=== PATIENT | male | born 2000 | race Caucasian/White ===

== ENCOUNTER 2018-09-11 23:03 | Emergency (ER) | payer OTHER ==
[~2018-09-11] VITALS: Ht 180.3 cm; Wt 88.6 kg
[2018-09-12] MEDS ORDERED: AMOX500C PO (02:01)
[2018-09-12] MEDS ORDERED: PSEU30TA85 PO (02:03)
[2018-09-12 02:11] VITALS: BP 130/80
[2018-09-12] MEDS ORDERED: AMOXICILLIN 500 MG CAP PO ONE (02:15)
== END 2018-09-12 02:12 | disposition home or self-care (01) ==
LOC: M ED 23:03
DX: H66.93 Otitis media, unspecified, bilateral (principal); Z77.098 Contact with and (suspected) exposure to other hazardous, chiefly nonmedicinal, chemicals

== ENCOUNTER 2018-09-30 21:05 | Day surgery (SDC) | payer OTHER ==
[~2018-09-30] VITALS: Ht 182.9 cm; Wt 90.9 kg
[~2018-09-30 21:05] MED LIST: AMOX500C PO; PSEU30TA85 PO
[2018-09-30] MEDS ORDERED: ONDANSETRON 4MG/2ML VIAL (J2405) IV ONE (21:45)
[2018-09-30] MEDS ORDERED: PANTOPRAZOLE 40MG INJ (PROTONIX) (C9113) IV ONE (21:45)
[2018-09-30] MEDS ORDERED: NS 1,000 ML IV ONE (21:45)
[2018-09-30 21:48] LABS: HEMATOCRIT 39.7 % (42.0-52.0); HEMOGLOBIN 13.4 g/dl (13.5-17.5); MEAN CORPUSCULAR HEMOGLOBIN 29.8 pg (27.0-33.0); MEAN CORPUSCULAR HGB CONC 33.8 g/dl (32.0-36.5); MEAN CORPUSCULAR VOLUME 88.2 fl (80.0-96.0); PLATELET COUNT, AUTOMATED 265 10^3/uL (150-450)
[2018-09-30 22:15] LABS: INR 1.06; PROTHROMBIN TIME 13.5 SECONDS (11.8-14.0)
[2018-09-30 22:25] LABS: ALBUMIN 3.8 GM/DL (3.2-5.2); ALT/SGPT 58 U/L (12-78); AMYLASE 82 U/L (25-115); BILIRUBIN,DIRECT 0.2 MG/DL (0.0-0.2); BILIRUBIN,TOTAL 0.5 MG/DL (0.2-1.0); BLOOD UREA NITROGEN 13 MG/DL (7-18); CALCIUM LEVEL 9.3 MG/DL (8.5-10.1); CARBON DIOXIDE LEVEL 27 MEQ/L (21-32); CHLORIDE LEVEL 106 MEQ/L (98-107); CREATININE FOR GFR 0.99 MG/DL (0.70-1.30); GLUCOSE, FASTING 95 MG/DL (70-100); LIPASE 665 U/L (73-393); POTASSIUM SERUM 3.9 MEQ/L (3.5-5.1); SODIUM LEVEL 140 MEQ/L (136-145); TOTAL PROTEIN 6.8 GM/DL (6.4-8.2)
[2018-09-30] MEDS ORDERED: NS 1,000 ML IV SCH (23:15)
[2018-09-30] MEDS ORDERED: MORPHINE 4 MG/ML 1ML VIAL/SYRINGE (J2270) IV ONE (23:15)
[2018-09-30 23:37] LABS: ETHYL ALCOHOL (ETHANOL) 0.003 % (0.000-0.010)
--- NOTE | 2018-10-01 00:07 | REPVR ---
EXAM: CT Abdomen and Pelvis Without Contrast EXAM DATE/TIME: 09/30/2018 10:50 PM CLINICAL HISTORY: 18 years old, male; Abdominal pain; Localized; Right lower quadrant (rlq); Additional info: Rlq pain TECHNIQUE: Imaging protocol: Axial computed tomography images of the abdomen and pelvis without contrast. Coronal and sagittal reformatted images were created and reviewed. Radiation optimization: All CT scans at this facility use at least one of these dose optimization techniques: automated exposure control; mA and/or kV adjustment per patient size (includes targeted exams where dose is matched to clinical indication); or iterative reconstruction. COMPARISON: No relevant prior studies available. Study limitations: Evaluation for mass, inflammatory change, including bowel wall/fold thickening, viscera, and vasculature, is suboptimal without contrast. There is some extraneous artifact across the upper abdomen. FINDINGS: LUNG BASES: No infiltrate or effusion. VASCULAR: Major vasculature is within normal limits for noncontrast evaluation PERITONEAL : No free air. Trace amount of free fluid seen within the pelvis. GI: No hiatal hernia. The stomach contains ingested material, fluid and gas. The stomach is not sufficiently distended for complete diagnostic evaluation by this exam. No perigastric or periduodenal inflammatory stranding seen. No asymmetric small bowel dilation to suggest obstruction. Small nonspecific mesenteric lymph nodes are seen. Scattered fecal material and gas within portions of the colon. There is appearance of rectal wall thickening and there is slight perirectal stranding and elevated vascularity. Clinical correlation for proctitis although findings could be secondary to a lack of sufficient distention and/or hemorrhoids as well. No evidence of acute diverticulitis. The appendix is dilated slightly above normal limits at 10.9 mm. There is minimal periappendiceal stranding. There is likely some appendiceal wall thickening although this would be better assessed with contrast. Findings are consistent with mild acute appendicitis. No evidence of perforation/free air or drainable abscess. HEPATOBILIARY, PANCREAS, SPLEEN: Sagittal hepatic length is 19.7 cm. No calcified gallstones. No pancreatic inflammation. Spleen not enlarged. ADRENALS, KIDNEYS, BLADDER, RETROPERITONEAL: Adrenals within normal limits. No hydronephrosis. No renal calculi. No perinephric stranding or fluid. Extrarenal pelvis noted on the left. No perivesical stranding. There is some prostate calcifications centrally. No bladder wall thickening. MUSCULOSKELETAL: No acute findings. IMPRESSION: Findings are consistent with mild uncomplicated acute appendicitis. Other gastrointestinal findings discussed above. Other incidental findings discussed above. THIS REPORT CONTAINS FINDINGS THAT MAY BE CRITICAL TO PATIENT CARE. The findings were verbally communicated via telephone conference with KENNY ROTHMAN at 12:06 AM EDT on 10/01/2018. The findings were acknowledged and understood. Electronically signed by: Derrick Joyner On 10/01/2018 00:07:10 AM
[2018-10-01] MEDS ORDERED: PIPERACILLIN/TAZOBACTAM SOD 3.375 GM in D5W MINI-BAG PLUS 50 ML IV ONE (00:15)
[2018-10-01] MEDS ORDERED: IBUP-1091 PO (00:42)
[2018-10-01] MEDS ORDERED: BUPIVACAINE/EPIN 0.25% 30 ML VIAL As Ordered ONE (01:09)
[2018-10-01] MEDS ORDERED: fentaNYL 250 MCG/5 ML INJECTION (J3010) As Ordered ONE (01:13)
[2018-10-01] MEDS ORDERED: PROPOFOL 200 MG/20 ML VIAL As Ordered ONE (01:13)
[2018-10-01] MEDS ORDERED: MIDAZOLAM INJ 2 MG/2 ML VIAL (J2250) As Ordered ONE (01:13)
[2018-10-01] MEDS ORDERED: ROCURONIUM BROMIDE 50 MG/5 ML VIAL As Ordered ONE (01:13)
[2018-10-01] MEDS ORDERED: ONDANSETRON 4MG/2ML VIAL (J2405) As Ordered ONE (01:13)
[2018-10-01] MEDS ORDERED: dexameTHASONE 4 MG/ML 1ML VIAL (J1100) As Ordered ONE (01:13)
[2018-10-01] MEDS ORDERED: LIDOCAINE 2% INJ 100 MG/5 ML SDV (FOR ANES.) As Ordered ONE (01:13)
[2018-10-01] MEDS ORDERED: ACETAMINOPHEN 1000MG 100ML IV BTL (OFIRMEV) (J0131 PER 10MG) As Ordered ONE (02:04)
[2018-10-01] MEDS ORDERED: KETOROLAC 60 MG/2 ML VIAL (J1885) As Ordered ONE (02:04)
[2018-10-01] MEDS ORDERED: METOCLOPRAMIDE INJ 10MG/2ML VIAL (J2765) As Ordered ONE (02:07)
[2018-10-01] MEDS ORDERED: SUGAMMADEX SODIUM 500 MG/5 ML VIAL (BRIDION) As Ordered ONE (02:21)
[2018-10-01] MEDS ORDERED: METOCLOPRAMIDE INJ 10MG/2ML VIAL (J2765) IV PRN (02:45)
[2018-10-01] MEDS ORDERED: LR 1,000 ML IV SCH (02:45)
[2018-10-01] MEDS ORDERED: ONDANSETRON 4MG/2ML VIAL (J2405) IV PRN ×2 (02:45→03:00)
[2018-10-01] MEDS ORDERED: PERCOCET 5MG/325MG TAB PO PRN (02:45)
[2018-10-01] MEDS ORDERED: KETOROLAC 30 MG/ML VIAL (J1885) IV PRN (02:45)
[2018-10-01] MEDS ORDERED: fentaNYL 100 MCG/2 ML INJECTION (J3010) IV PRN (02:45)
[2018-10-01] MEDS ORDERED: D5W/LR 1,000 ML IV SCH (02:46)
[2018-10-01] MEDS ORDERED: MORPHINE 4 MG/ML 1ML VIAL/SYRINGE (J2270) IV PRN (03:00)
[2018-10-01] MEDS ORDERED: NORCO, ANEXSIA 5/325MG TABLET (HYDROcodone/ACETAMINOPHEN) PO PRN ×2 (03:00)
[2018-10-01 03:45] VITALS: BP 174/77
[2018-10-01 04:15] VITALS: BP 169/74
[2018-10-01 05:15] VITALS: BP 169/74
[2018-10-01 06:00] VITALS: BP 169/77
[2018-10-01] MEDS: PIPERACILLIN/TAZOBACTAM SOD 3.375 GM in D5W MINI-BAG PLUS 50 ML IV SCH ×2 (06:14→11:27)
[2018-10-01] MEDS ORDERED: KETOROLAC 30 MG/ML VIAL (J1885) IV SCH (08:00)
== END 2018-10-01 13:10 | disposition home or self-care (01) ==
LOC: M ED 21:05 → M SDC 21:06 → M MS5PR 10-01 03:30 → M SDC 10-01 03:30 → EDBEDREQTM 10-01 03:45 → M MS5PR 10-01 13:10 → M SDC 10-01 13:10
PROVIDERS: ATTEND Surgery
DX: K35.890 Other acute appendicitis without perforation or gangrene (principal); F17.290 Nicotine dependence, other tobacco product, uncomplicated
CPT/HCPCS: 36415; 44970; 74176; 80053; 81001; 82150; 82248; 83690; 85027; 85610; 86850; 86900; 86901; 88302; 96361; 96374; 96375; 96376; 99284; C9113; G0480; J0131; J1100; J1885; J2250; J2270; J2405; J2543; J2765; J3010

== ENCOUNTER 2019-11-15 12:27 | Inpatient (IN) | payer OTHER ==
[~2019-11-15] VITALS: Ht 182.9 cm; Wt 90.9 kg
[~2019-11-15 12:27] MED LIST changes: +IBUP-1720 PO
[2019-11-15] MEDS ORDERED: ESTR1TAB PO ×2 (12:44)
[2019-11-15] MEDS ORDERED: SPIR-10 PO (12:44)
[2019-11-15 13:10] LABS: HEMATOCRIT 43.6 % (42.0-52.0); HEMOGLOBIN 14.2 g/dl (13.5-17.5); MEAN CORPUSCULAR HEMOGLOBIN 29.8 pg (27.0-33.0); MEAN CORPUSCULAR HGB CONC 32.6 g/dl (32.0-36.5); MEAN CORPUSCULAR VOLUME 91.4 fl (80.0-96.0); PLATELET COUNT, AUTOMATED 352 10^3/uL (150-450); RED BLOOD COUNT 4.77 10^6/uL (4.30-6.10); WHITE BLOOD COUNT 13.3 10^3/uL (4.0-10.0)
[2019-11-15 13:38] LABS: AMPHETAMINES LEVEL URINE NEGATIVE (NEGATIVE); BARBITURATES URINE NEGATIVE (NEGATIVE); BENZODIAZEPINES URINE NEGATIVE (NEGATIVE); CANNABINOIDS URINE NEGATIVE (NEGATIVE); COCAINE METABOLITE URINE NEGATIVE (NEGATIVE); METHADONE URINE NEGATIVE (NEGATIVE); OPIATES URINE NEGATIVE (NEGATIVE); PHENCYCLIDINE URINE NEGATIVE (NEGATIVE)
[2019-11-15 13:53] LABS: ACETAMINOPHEN LEVEL < 2.0 UG/ML (10.0-30.0); ALBUMIN 4.2 GM/DL (3.2-5.2); ALT/SGPT 19 U/L (12-78); BILIRUBIN,DIRECT < 0.1 MG/DL (0.0-0.2); BILIRUBIN,TOTAL 0.2 MG/DL (0.2-1.0); BLOOD UREA NITROGEN 15 MG/DL (7-18); CARBON DIOXIDE LEVEL 26 MEQ/L (21-32); CHLORIDE LEVEL 106 MEQ/L (98-107); CREATININE FOR GFR 0.99 MG/DL (0.70-1.30); ETHYL ALCOHOL (ETHANOL) < 0.003 % (0.000-0.010); GLOMERULAR FILTRATION RATE > 60.0 (>60); GLUCOSE, FASTING 96 MG/DL (70-100); POTASSIUM SERUM 4.3 MEQ/L (3.5-5.1); SALICYLATE LEVEL < 1.7 MG/DL (5.0-30.0); SODIUM LEVEL 135 MEQ/L (136-145)
--- NOTE | 2019-11-15 20:37 | ECGEPIP ---
[facility] - ED Test Date: 2019-11-15 Pat Name: ENMA PARKER Department: Room: - Gender: Male Resident In Diagnostic Radiology: : 2000 Requested By: PIETRO Wheatley Order Number: [id number] Reading MD: Angella Silveira Measurements Intervals [place] Rate: 54 P: 20 WA: 160 QRS: 66 QRSD: 109 T: 48 QT: 448 QTc: 428 Interpretive Statements SINUS BRADYCARDIA NO PRIOR Electronically Signed on 11-15-2019 20:36:33 EDT by Angella Silveira
[2019-11-15] MEDS ORDERED: estradioL 1 MG TAB PO ONE (21:00)
[2019-11-16] MEDS: NICOTINE 21MG/24HR 1 EA TRANSDERMAL TD SCH (09:00)
[2019-11-16] MEDS: SPIRONOLACTONE 25 MG TAB PO SCH (09:25)
[2019-11-16] MEDS: estradioL 1 MG TAB PO SCH (10:04)
[2019-11-16] MEDS ORDERED: MAALOX 30 ML SUSP *UDC PO PRN (17:15)
[2019-11-16] MEDS ORDERED: MOM 30ML SUSPENSION UDC PO PRN (17:15)
[2019-11-16] MEDS ORDERED: ACETAMINOPHEN TAB 650MG DOSE (2X325MG) PO PRN (17:15)
[2019-11-16] MEDS ORDERED: OLANZapine ORAL DISINTEGRATING TAB 5MG PO PRN (17:15)
[2019-11-16] MEDS ORDERED: traZODone 50 MG TAB PO PRN (17:15)
[2019-11-16 18:50] VITALS: BP 143/72
[2019-11-17 07:04] VITALS: BP 129/57
[2019-11-17] MEDS: estradioL 1 MG TAB PO SCH ×2 (08:30→20:04)
[2019-11-17] MEDS: SPIRONOLACTONE 25 MG TAB PO SCH (08:31)
[2019-11-17] MEDS: NICOTINE 21MG/24HR 1 EA TRANSDERMAL TD SCH (08:31)
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
[2019-11-17] MEDS ORDERED: SERTRALINE HCL 25 MG TABLET PO ONE (12:15)
[2019-11-17] MEDS ORDERED: OXAZEPAM 10 MG CAP PO ONE (12:15)
[2019-11-17 15:39] VITALS: BP 127/72
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
[2019-11-18 06:36] VITALS: BP 121/67
[2019-11-18] MEDS: SPIRONOLACTONE 25 MG TAB PO SCH (08:09)
[2019-11-18] MEDS: SERTRALINE HCL 25 MG TABLET PO SCH (08:09)
[2019-11-18] MEDS: estradioL 1 MG TAB PO SCH ×2 (08:10→20:00)
[2019-11-18] MEDS: NICOTINE 21MG/24HR 1 EA TRANSDERMAL TD SCH (08:10)
[2019-11-18] MEDS ORDERED: INFLUENZA QUADRIVALENT PF VACCINE 0.5ML SYRINGE IM ONE (09:00)
--- NOTE | 2019-11-18 10:31 | MHIPNPDOC ---
[facility] Progress Note Progress Note DATE OF SERVICE: 11/18/19 Subjective HPI: The patient is met with, she reports that she is doing much better and feeling improved, she reports that she will feel better about leaving tomorrow reports that intermittent ideation of hopelessness is present but no overt suicidal thoughts. She's been engaged and has been socializing well on the unit, without any major problems. Objective General: Well dressed with good hygiene Speech: Spontaneous and fluid Thought processes: Linear and logical Thought content: Future orientated Abstract reasoning, and computation: Intact Description of associations: Intact Description of abnormal or psychotic thoughts:Denies any suicidal or homicidal ideation. Denies any auditory or visual hallucinations. Does not appear to be responding to internal stimuli. Does not appear to be endorsing any bizarre or paranoid ideation. Judgment: fair Insight: fair Orientation: Alert and orientated 3 Recent and remote memory: Intact Attention span and concentration: Intact Fund of knowledge: Adequate Mood: "okay" Affect: Euthymic with a full range Assessment major depressive disorder, recurrent, unspecified Plan Plan is to continue Zoloft as current, discharge tomorrow is patient on voluntary and will not likely meet involuntary criteria on discharge Vital Signs Vital Signs Date Time Temp Pulse Resp B/P (MAP) Pulse Ox O2 Delivery O2 Flow Rate FiO2 11/18/19 06:36 96.4 66 12 121/67 (85) Room Air 11/17/19 07:04 98 Current Medications Current Medications Medications (Trade) Dose Ordered Sig/Ervin Route PRN Reason Start Time Stop Time Status Last Admin Dose Admin Acetaminophen (Tylenol Tab) 650 mg Q6HP PRN PO HEADACHE or DISCOMFORT 11/16/19 17:15 Al Hydrox/Mg Hydrox/Simethicone (Mylanta) 30 ml Q4HP PRN PO HEARTBURN/INDIGESTION 11/16/19 17:15 Estradiol (Estrace) 1 mg QHS PO 11/17/19 21:00 11/17/19 20:04 Estradiol (Estrace) 2 mg DAILY PO 11/16/19 09:00 11/18/19 08:10 Home Med (Med Rec Complete!) ASDIRECTED XX 11/15/19 20:30 11/15/19 20:31 DC Magnesium Hydroxide (Milk Of Magnesia) 30 ml DAILYPRN PRN PO CONSTIPATION 11/16/19 17:15 Nicotine (Nicoderm Cq 21mg) 1 patch DAILY TD 11/16/19 09:00 11/18/19 08:10 Olanzapine (ZyPREXA ZYDIS) 5 mg Q6HP PRN PO AGITATION/ANXIETY 11/16/19 17:15 Sertraline HCl (Zoloft) 25 mg DAILY PO 11/18/19 09:00 11/18/19 08:09 Spironolactone (Aldactone) 25 mg QAM PO 11/16/19 09:00 11/18/19 08:09 Trazodone HCl (Desyrel) 50 mg QHSP PRN PO INSOMNIA 11/16/19 17:15 Allergies Coded Allergies: No Known Allergies (Unverified , 09/30/18) CHRIS JEROME DO Nov 18, 2019 10:31
[2019-11-18 18:33] VITALS: BP 127/58
[2019-11-19 06:43] VITALS: BP 135/63
[2019-11-19] MEDS: SPIRONOLACTONE 25 MG TAB PO SCH (08:05)
[2019-11-19] MEDS: estradioL 1 MG TAB PO SCH (08:05)
[2019-11-19] MEDS: SERTRALINE HCL 25 MG TABLET PO SCH (08:05)
[2019-11-19] MEDS: NICOTINE 21MG/24HR 1 EA TRANSDERMAL TD SCH (09:00)
--- NOTE | 2019-11-19 10:23 | MHDSPDOC ---
[facility] Discharge Summary Discharge Summary DATE OF ADMISSION: Nov 16, 2019 at 17:05 DATE OF DISCHARGE: Nov 19, 2019 at 13:18 DISCHARGE DIAGNOSES: F33.1 Major depressive disorder, recurrent, moderate CONSULTANTS INVOLVED:[ None (basic hospitalist screening)] REASON FOR ADMISSION & TREATMENT AND PROGRESS ON THE UNIT : The patient whose preferred name is Kelli presented to [facility] after increasing stressors and suicidal thoughts. She is generally doing well while on Sertraline and has reported no major side effects and resolved quite well her depressive symptoms of low mood and motivation as well as anxiety, was converted to voluntary shortly after presenting and did not have any concerning behavior or ideation.There was some notable symptoms of reported of abandonment issues, however, she did quite well in our unit and engaged. She eventually asked for discharge and was triaged back to outpatient. She did report fleeting thoughts of helplessness that had been misinterpreted by some of the treatment team members as "passively suicidal" however when asked, more specifically, she reported that she had not had any thoughts of killing herself, but more hopelessness about some of the situation, She faced in the , she reported that these had been improving and are now fleeting and not present on discharge. DISCHARGE ASSESSMENT:[improved] Legal status considerations: The patient at the time of discharge did not meet criteria for involuntary admission/extension due to having a [normal] mental status exam, [fair] insight into the situation, They are engaged in the discharge process, as well as being friendly and amenable in behavioral control and havent been engaging in any observed concerning behavior or ideation recently. They decline voluntary extension/admission at this time and must be discharged in good chuckie, as Im unable to make a case for holding the patient against their will. They may have historical risk factors of admissions and other interactions with psychiatry however, those are not modifiable from a clinical perspective. The patient will need to be discharged in good chuckie. MENTAL STATUS EXAMINATION ON DISCHARGE: [General: Well dressed with good hygiene Speech: Spontaneous and fluid Thought processes: Linear and logical Thought content: Future orientated Abstract reasoning, and computation: Intact Description of associations: Intact Description of abnormal or psychotic thoughts:Denies any suicidal or homicidal ideation. Denies any auditory or visual hallucinations. Does not appear to be responding to internal stimuli. Does not appear to be endorsing any bizarre or paranoid ideation. Judgment: fair Insight: fair Orientation: Alert and orientated 3 Recent and remote memory: Intact Attention span and concentration: Intact Fund of knowledge: Adequate Mood: "okay" Affect: Euthymic with a full range] PLAN/FOLLOWUP ARRANGEMENTS: Follow up appointments made (PCP and MH in 5 days of D/C date) and safety plan completed. Safety Planning aspects completed prior to discharge [DOD: Weapons Profile 30 days] [Medication supplies limited to 7 days with 4 refills to prevent accumulation to OD] [Family contact completed, educated on safe practices, instructed on removal and mitigation of dangerous means] [RN reviewed crisis hotline information and other aspects to empower patient to access care in interim before next appointment.] The amount of time spent in the coordination of care for this patient was approximately 30 minutes. Vital Signs/I&Os Vital Signs Date Time Temp Pulse Resp B/P (MAP) Pulse Ox O2 Delivery O2 Flow Rate FiO2 11/19/19 06:43 96.4 67 12 135/63 (87) Room Air 11/17/19 07:04 98 Medications Scheduled Estradiol (Estradiol) 1 Mg Tablet, 1 MG PO QHS for hormones for 7 Days, #7 Estradiol (Estradiol) 1 Mg Tablet, 2 MG PO DAILY for hormones for 7 Days, #14 Sertraline HCl (Sertraline HCl) 25 Mg Tablet, 25 MG PO DAILY for mood for 7 Days, #7 Spironolactone (Spironolactone) 100 Mg Tablet, 1 TAB PO DAILY for hormones for 7 Days, #7 Allergies Coded Allergies: No Known Allergies (Unverified , 09/30/18) CHRIS JEROME DO Nov 19, 2019 10:22
[2019-11-19] MEDS ORDERED: SPIR-10 PO (10:57)
[2019-11-19] MEDS ORDERED: SERT25TA21 PO (10:57)
[2019-11-19] MEDS ORDERED: ESTR1TAB PO ×2 (10:57)
[2019-11-19] MEDS ORDERED: SPIR100T3 PO (11:17)
== END 2019-11-19 13:18 | disposition home or self-care (01) | DRG 885 ==
LOC: M ED 12:27 → M ED INP 11-16 17:05 → M PSY 11-16 18:32
PROVIDERS: ADMIT Psychiatry & Neurology Addiction Medicine; ATTEND Psychiatry & Neurology Addiction Medicine
DX: F33.1 Major depressive disorder, recurrent, moderate (principal); F41.0 Panic disorder [episodic paroxysmal anxiety]; F17.200 Nicotine dependence, unspecified, uncomplicated; F64.9 Gender identity disorder, unspecified; Z79.899 Other long term (current) drug therapy